=== PATIENT | female | born 1940 | race Caucasian/White ===

== ENCOUNTER 2020-09-01 09:52 | Outpatient (CLI) | payer MEDICARE, OTHER, SELFPAY ==
--- NOTE | 2020-09-01 10:00 | PC.NURSE ---
Pt to OP infusion center for iron infusion and b12 injection. Pt ambulatory with daughter. A&Ox3. Has no questions or complaints. Oriented to area. Call angel in reach. Reminded to voice needs or concerns.
[2020-09-01] MEDS: CYANOCOBALAMIN INJ 1,000 MCG/ML VIAL 1000 MCG IM (10:21)
[2020-09-01 10:26] VITALS: BP 155/58; PULSE 61; RESP 20; TEMP 36.5; O2SAT 99
[2020-09-01 10:31] VITALS: BP 155/49; PULSE 60; RESP 20; TEMP 36.7; O2SAT 98
--- NOTE | 2020-09-01 10:37 | PC.NURSE ---
Iron infusion complete. Pt tolerated well. VSS. Normal Saline infusion started.
[2020-09-01] MEDS: SODIUM CHLORIDE 0.9% IV 250 ML 10 ML IVPB (10:38)
[2020-09-01 10:43] VITALS: BP 156/51; PULSE 58; RESP 20; TEMP 36.7; O2SAT 98
--- NOTE | 2020-09-01 11:14 | PC.NURSE ---
All medications administered as ordered. Pt tolerated well. Has no complaints. Discharged to home ambulatory with daughter.
== END 2020-09-01 09:53 | disposition home or self-care (01) ==
LOC: CHSLAB 10:00 → CHSTREATRM 10:05
PROVIDERS: Visit Provider Internal Medicine Hematology & Oncology
DX: D50.9 Iron deficiency anemia, unspecified (principal); D51.9 Vitamin B12 deficiency anemia, unspecified
CPT/HCPCS: 96360; 96365; 96372; J3420; J7050; Q0138

== ENCOUNTER 2020-09-08 09:57 | Outpatient (CLI) | payer MEDICARE, OTHER, SELFPAY ==
[2020-09-08 10:10] VITALS: BP 169/55; PULSE 73; RESP 16; TEMP 36.6; O2SAT 97
[2020-09-08] MEDS: CYANOCOBALAMIN INJ 1,000 MCG/ML VIAL 1000 MCG IM (10:23)
[2020-09-08] MEDS: SODIUM CHLORIDE 0.9% IV 250 ML 10 ML IVPB (11:00)
[2020-09-08 11:40] VITALS: BP 162/46; PULSE 60; RESP 16; TEMP 36.2; O2SAT 100
--- NOTE | 2020-09-08 11:47 | PC.NURSE ---
Patient here for 2nd dose of Feraheme and dose 2 of 4 of Vitamin B12. Patient also received 250ml of Normal saline. Patient tolerated well. Denies any side effects at this time. Patient left OP treatment room independently with wheeled walker safely.
== END 2020-09-08 09:58 | disposition home or self-care (01) ==
LOC: CHSTREATRM 10:02
PROVIDERS: Visit Provider Internal Medicine Hematology & Oncology
DX: D50.9 Iron deficiency anemia, unspecified (principal); E53.8 Deficiency of other specified B group vitamins
CPT/HCPCS: 96360; 96361; 96365; 96372; J3420; J7050; Q0138

== ENCOUNTER 2020-09-18 11:22 | Outpatient (CLI) | payer MEDICARE, OTHER, SELFPAY ==
[2020-09-18] MEDS: CYANOCOBALAMIN INJ 1,000 MCG/ML VIAL 1000 MCG IM (11:48)
[2020-09-18 11:52] VITALS: BMI 31.2
[2020-09-18 11:54] VITALS: BP 130/69; PULSE 68; RESP 18; O2SAT 97
--- NOTE | 2020-09-18 11:55 | PC.NURSE ---
Patient here for #3 of 4 weekly B12 injections. No concerns voiced. Review of medication given. B12 injection administered SEE APR. Tolerated well. Will return next Friday at 1000. Safe exit of hospital.
== END 2020-09-18 11:23 | disposition home or self-care (01) ==
LOC: CHSLAB 11:26 → CHSTREATRM 11:41
PROVIDERS: Visit Provider Internal Medicine Hematology & Oncology
DX: D51.9 Vitamin B12 deficiency anemia, unspecified (principal)
CPT/HCPCS: 96372; J3420

== ENCOUNTER 2020-09-25 10:32 | Outpatient (CLI) | payer MEDICARE, OTHER, SELFPAY ==
[2020-09-25] MEDS: CYANOCOBALAMIN INJ 1,000 MCG/ML VIAL 1000 MCG IM (10:44)
[2020-09-25 10:48] VITALS: BP 111/67; PULSE 68; RESP 14; TEMP 36.4; O2SAT 98
--- NOTE | 2020-09-25 10:48 | PC.NURSE ---
Patient here for #4 of 4 B12 weekly injections. NO concerns voiced. B12 injection administered. Tolerated well. Safe exit of hospital.
== END 2020-09-25 10:33 | disposition home or self-care (01) ==
LOC: CHSLAB 10:35 → CHSTREATRM 10:36
PROVIDERS: Visit Provider Internal Medicine Hematology & Oncology
DX: D51.9 Vitamin B12 deficiency anemia, unspecified (principal)
CPT/HCPCS: 96372; J3420